=== PATIENT | male | born 1960 | race Caucasian/White ===

== ENCOUNTER 2025-05-27 22:35 | Emergency (ER) | payer BC ==
[~2025-05-27] VITALS: Ht 175.3 cm; Wt 95.3 kg
[2025-05-28] MEDS ORDERED: ACETAMINOPHEN ES 500 MG TABLET ONE (00:26)
[2025-05-28] MEDS: ACETAMINOPHEN ES 500 MG TABLET PO ONE (00:52)
[2025-05-28 01:42] VITALS: BP 129/81; TEMP 98.5; O2SAT 96
== END 2025-05-28 01:43 | disposition home or self-care (01) ==
LOC: ER 22:38
DX: G50.1 Atypical facial pain (principal); I10 Essential (primary) hypertension; Z87.820 Personal history of traumatic brain injury; V43.52XA Car driver injured in collision with other type car in traffic accident, initial encounter; Y93.89 Activity, other specified; Y92.410 Unspecified street and highway as the place of occurrence of the external cause; Y99.9 Unspecified external cause status
CPT/HCPCS: 70450-TC; 71045-TC; 73090-TC; 73130-TC